=== PATIENT | male | born 1935 | race Two or more races ===

== ENCOUNTER 2023-06-09 10:25 | Emergency (ER) | payer OTHER ==
[~2023-06-09] VITALS: Ht 180.3 cm; Wt 83.9 kg
[~2023-06-09 10:25] MED LIST: CELEBREX50 MG PO; LIPITOR20 MG
[2023-06-09] MEDS ORDERED: COZAAR25 MG (10:39)
[2023-06-09] MEDS ORDERED: PROTONIX20 MG (10:39)
[2023-06-09] MEDS ORDERED: AZITHROMYCIN 500 MG TABLET PO STA (10:56)
[2023-06-09] MEDS ORDERED: IBUprofen 100 MG/5 ML-120ML ML PO STA (12:45)
== END 2023-06-09 14:56 | disposition home or self-care (01) ==
LOC: ER 10:26
DX: J06.9 Acute upper respiratory infection, unspecified (principal); Z20.822 Contact with and (suspected) exposure to COVID-19